=== PATIENT | male | born 1965 | race Caucasian/White ===

== ENCOUNTER 2023-04-30 10:58 | Emergency (ER) | payer MEDICARE, OTHER ==
[~2023-04-30] VITALS: Ht 175 cm; Wt 99.7 kg
--- NOTE | 2023-04-30 11:20 | ED EENT ---
History of Present Illness General Chief Complaint: Oral/Throat Problems Stated Complaint: SORE THROAT Source: patient Exam Limitations: no limitations History of Present Illness Date Seen by Provider: Apr 30, 2023 Time Seen by Provider: 11:18 Initial Comments Patient is a 57-year-old male who presents ED with nasal congestion, scratchy throat, mild cough, change in voice. Symptoms started 2 days ago. States he has some changes in speaking. States his voice sounds raspy. Reports coughing up spit. Denies of any chest pain or shortness of breath. Denies fever, chills, body aches, nausea, vomiting, diarrhea. He reports history of similar symptoms. He is unclear if this is secondary to allergies or infection. Patient states he has no pain with swallowing or difficulty keeping things down. Denies taking medication at home. Denies history of stroke, coronary artery disease, COPD or asthma. Allergies and Home Medications Allergies Coded Allergies: No Known Drug Allergies (Unverified , 04/30/23) Patient Home Medication List Home Medication List Reviewed: Yes Review of Systems Review of Systems Constitutional: No chills, No diaphoresis, No fever, No malaise, No weakness Eyes: Denies Drainage, Denies Decreased Acuity Ears: Denies Dizziness, Denies Pain Nose: congestion Mouth: clear discharge Throat: denies pain, denies swelling; discharge Respiratory: cough Cardiovascular: No chest pain Gastrointestinal: No abdominal pain, No diarrhea, No nausea, No vomiting Musculoskeletal: No back pain, No joint pain All Other Systems Reviewed Negative Unless Noted: Yes Past Qkxyluv-[id number]-Lqnkns Hx Patient Social History Tobacco Use?: No Substance use?: No Alcohol Use?: No Pt feels they are or have been: No Past Medical History Surgery/Hospitalization HX: PMH;CHOLESTEROL SURG. DENIES Physical Exam Vital Signs Vital Signs - First Documented 04/30/23 11:06 Temp 37.1 Pulse 94 Resp 20 B/P (MAP) 161/97 (118) Pulse Ox 94 O2 Delivery Room Air Height, Weight, BMI Height: '" Weight: lbs. oz. kg; BMI Method: General Appearance: WD/WN, no apparent distress Eyes: bilateral eye normal inspection, bilateral eye PERRL, bilateral eye EOMI Ears: bilateral ear auricle normal, bilateral ear canal normal, bilateral ear TM normal Nose: normal inspection Mouth/Throat: other (Oropharynx patent without erythema, swelling, exudate. No stridor. No anterior neck pain. 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, no motor/sensory deficits, alert Skin: normal color, warm/dry Progress/Results/Core Measures Results/Orders Lab Results Laboratory Tests Test 04/30/23 11:08 04/30/23 11:18 Range/Units Group A Streptococcus Screen Not Detected NotDetected Influenza Type A (RT-PCR) Not Detected Not Detecte Influenza Type B (RT-PCR) Not Detected Not Detecte SARS-CoV-2 RNA (RT-PCR) Detected H Not Detecte My Orders Orders - SARA METZ Rapid Strep A Screen (04/30/23 11:11) Covid 19 Inhouse Test (04/30/23 11:17) Influenza A And B By Pcr (04/30/23 11:17) Dexamethasone Injection (Dexamethasone (04/30/23 12:00) Medications Given in ED Current Medications Medications Dose Ordered Sig/Corky Route Start Time Stop Time Status Last Admin Dose Admin Dexamethasone Sodium Phosphate 10 mg ONCE ONCE IM 04/30/23 12:00 04/30/23 12:01 DC 04/30/23 12:04 10 MG Vital Signs/I&O 04/30/23 04/30/23 11:06 12:19 Temp 37.1 36.4 Pulse 94 87 Resp 20 20 B/P (MAP) 161/97 (118) 142/84 Pulse Ox 94 96 O2 Delivery Room Air Room Air Departure Communication (PCP) Reviewed previous ER visits, H&P, lab testing. Differential diagnosis viral syndrome, COVID, strep. Patient on arrival no acute distress. Vital signs stable besides slightly hypertensive. Patient with a history of diabetes, mental health, high cholesterol. Currently on atorvastatin, Depakote, carbamazepine, metformin. Patient does not appear in respiratory distress. Oropharynx patent without erythema, swelling, exudate. No stridor. Tolerating secretions. Oropharynx patent without erythema, swelling, exudate. Strep a was ordered which was negative. COVID influenza was ordered which she tested positive for COVID. He denies of any chest pain or shortness of breath. His lung sounds clear bilateral. No vomiting or diarrhea. Patient denies history of coronary artery disease, COPD or cancer. Due to his medication contradictions especially carbamazepine which he cannot stop for his mental health patient is not a candidate for Paxlovid. We suggest to not pursue with Paxlovid at this time. he does not appear in any type of distress. He is up-to-date on his COVID vaccines. Symptoms over the past 2 days. Recommend returning back to ED if symptoms worsen such as difficulty breathing, chest pain or shortness of breath Isolate at home for additional 3 days. As long as her asymptomatic afebrile may return with a mask. Follow-up your PCP in 2 to 3 days for evaluation Impression Primary Impression: COVID-19 Disposition: 01 HOME, SELF-CARE Condition: Stable Departure-Patient Inst. Decision time for Depature: 12:04 Referrals: MERLENE LITTLE APRN (PCP) Primary Care Physician Patient Instructions: COVID-19 (DC) Add. Discharge Instructions: The medications you are on have potential severe interactions is not necessarily recommended at this time. Recommend continue staying hydrated at home. Tylenol for fever or body pains. If increasing symptoms such as difficulty breathing, worsening cough to return back to ED. Isolate at home for additional 3 days. As long as you are asymptomatic and afebrile can return with a mask for additional 5 days. All discharge instructions reviewed with patient and/or family. Voiced understanding. SARA METZ Apr 30, 2023 11:20
[2023-04-30] MEDS ORDERED: dexAMETHasone INJ 10 MG/ML 1 ML VIAL IM ONE (12:00)
[2023-04-30 12:19] VITALS: BP 142/84
== END 2023-04-30 12:20 | disposition home or self-care (01) ==
LOC: EDUNIT# 10:58 → ER 11:03
DX: U07.1 COVID-19 (principal); R09.81 Nasal congestion; R05.9 Cough, unspecified
CPT/HCPCS: 87430; 87636; 99284